=== PATIENT | female | born 1945 | race Caucasian/White ===

== ENCOUNTER 2017-12-25 10:08 | Emergency (ER) | payer OTHER, MEDICARE ==
[~2017-12-25] VITALS: Ht 172.7 cm; Wt 87.0 kg
[~2017-12-25 10:08] MED LIST: ARMO90TA PO; ASPI81 PO; CALCTAB32 PO; CELE20TA PO; CETI10 PO; CRAN125T PO; FISH120014; LIPI10TA PO; PROC1TAB8 PO; PROT40TA PO; SODI1 PO; TOPA25TA8 PO; TRAZ50TA4 PO
[2017-12-25 10:36] VITALS: BP 165/89; PULSE 74; RESP 16; TEMP 98.4; O2SAT 96
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
[2017-12-25] MEDS ORDERED: CYCL10TA PO (14:14)
== END 2017-12-25 14:25 | disposition home or self-care (01) ==
LOC: PHEFT 10:08
DX: S16.1XXA Strain of muscle, fascia and tendon at neck level, initial encounter (principal); K21.9 Gastro-esophageal reflux disease without esophagitis; E07.9 Disorder of thyroid, unspecified; E78.00 Pure hypercholesterolemia, unspecified; Z86.2 Personal history of diseases of the blood and blood-forming organs and certain disorders involving the immune mechanism; Z87.39 Personal history of other diseases of the musculoskeletal system and connective tissue; V89.2XXA Person injured in unspecified motor-vehicle accident, traffic, initial encounter
CPT/HCPCS: 72125; 99284; L0150

== ENCOUNTER 2017-12-27 05:35 | Emergency (ER) | payer MEDICARE, OTHER ==
[~2017-12-27] VITALS: Ht 172.7 cm; Wt 88.0 kg
[~2017-12-27 05:35] MED LIST changes: +CYCL10TA PO
[2017-12-27 06:10] VITALS: BP 151/85; PULSE 69; RESP 18; TEMP 98.1; O2SAT 95
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
[2017-12-27] MEDS ORDERED: OSEL75 PO (07:10)
== END 2017-12-27 07:18 | disposition home or self-care (01) ==
LOC: PHED 05:35
DX: B34.9 Viral infection, unspecified (principal); E78.00 Pure hypercholesterolemia, unspecified; K21.9 Gastro-esophageal reflux disease without esophagitis
CPT/HCPCS: 87804; 99283